=== PATIENT | female | born 2005 | race Caucasian/White ===

== ENCOUNTER 2024-05-03 06:33 | Outpatient (REF) | payer OTHER, SELFPAY ==
--- OUTSIDE RECORDS SUMMARY | 2024-05-03 06:37 | XMS_ITS | Encounter Summary ---
Author Organization [facility] Address [address] [place] [id number] Phone Care Team Providers Care Unit Aide Name Role Phone Ericka Hernandez MD Primary Care Provider [phone] Encounter Details Date Type Department Care Team (Late st Contact Info) Description 04/07/2022 Conversion Encounter [facility] [address] [place] [address] [address] [place] [address] Ericka Hernandez MD [address] [place] [address] [address] [place] [address] Social History Tobacco Use Types Packs/Day Years Used Date Smoking Tobacco: Never Assessed Comments Unknown Sex and Gender Information Value Date Recorded Sex Assigned at Not on file Legal Sex Female 3:45 PM EST Gender Identity Female 04/30/2024 4:05 PM EST Sexual Orientation Don't know 10/27/2022 1: 07 PM EDT documented as of this encounter Plan of Treatment Not on file documented as of this encounter Visit Diagnoses Not on filedocumented in this encounter Care Teams Unit Aide Relationship Specialty Start Date End Date Ericka Hernandez MD [address] [place] [address] [address] [place] [address] PCP - General 03/12/22 documented as of this encounter
--- OUTSIDE RECORDS SUMMARY | 2024-05-03 06:37 | XMS_ITS | Encounter Summary ---
Author Organization [facility] Address [address] [place] [phone] Phone Care Team Providers Care Arc Furnace Operator Name Role Phone Ericka Hernandez MD Primary Care Provider [phone] Reason for Visit * Reason Onset Date Comments Med Refill 04/03/2024 Encounter Details Date Type Department Care Team (Late st Contact Info) Description 04/03/2024 Refill [facility] [address] [place] [address] [address] [place] [address] Ericka Hernandez MD [address] [place] [address] [address] [place] [address] Food allergy (Primary Dx); Attention-deficit hyperactivity disorder, predominantly inattentive type Social History Tobacco Use Types Packs/Day Years Used Date Smoking Tobacco: Never Smokeless Tobacco: Never Alcohol Use Standard Drinks/Week Comments Never 0 (1 standard drink = 0.6 oz pur e alcohol) Hunger/Food Answer Date Recorded In the last 12 months, did y ou or your family ever eat less than you felt you should because there wasn't enough money for food? No 08/30/2023 Stable Housing Answer Date Recorded Are you worried that in the next 2 months you may not have stable housing? No 08/30/2023 Transportation Concerns Answer Date Rec orded In the last 12 months, have you or your family ever had to go without healthcare because you didn't have a way to get there? No 08/30/2023 Hazards in Home Answer Date Recorded Think about the place you li ve. Do you have problems with any of the following? Pests (mice or roaches), mold, no/not working smoke detectors, water leaks, no window guards. No 2023 Financing Utilities Answer Date Recorde d In the last 12 months, has t he electric, gas, oil, or water company threatened to shut off your services in your home? No 08/30/2023 Safety at Home Answer Date Recorded Are you or your family worried about feeling saf e in your home? No 08/30/2023 Outside Support Answer Date Recorded Do you feel that you need mo re support from other people or programs to help you care for yourself or your family? No 08/30/2023 Understanding Health Concerns Answer Da te Recorded Do you need help understandi ng your or your child's healthcare needs (diagnosis, medications, plan, etc.)? No 08/30/2023 Financing Health Concerns Answer Date R ecorded In the last 12 months, was t here a time when your child needed to see a doctor or get medications or supplies but could not because of cost? No 08/30/2023 Missing School or Work Answer Date Nick rded Did you or your child miss s chool or work because of a health problem that could have been avoided? No 08/30/2023 Child Education Answer Date Recorded Do you have concerns about y our/your child's learning or behavior in school, preschool, or daycare? 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
--- OUTSIDE RECORDS SUMMARY | 2024-05-03 06:37 | XMS_ITS | Clinical Summary ---
Author Organization [facility] Address [address] [place] [phone] Phone Care Team Providers Care Nurse Advisor Name Role Phone Ericka Hernandez MD Primary Care Provider Allergies Active Allergy Reactions Criticality Noted Date Comments Peanuts (Food) 10/13/2021 Shellfish Allergy High 10/27/2022 Tree Nuts (Food) 10/27/2022 Medications ProAir HFA 108 (90 Base) MCG/ACT inhaler SMARTSI-2 Puff(s) Via Inhaler PRN 2 Active methylphenidate 10 MG tablet Take 10 mg by mouth once daily as needed. 1 Active ondansetron 4 MG tabletIndications :Migraine with aura and without status migrainosus, not intractable Take 1 tablet (4 mg total) by mouth every 12 (twelve) hours as needed for nausea or vomiting. 20 tablet 4 Active Omalizumab (XOLAIR SC) Inject under the skin. Active EPINEPHrine 0.3 MG/0.3ML injection syringeIndication s:Food allergy Inject 0.3 mL (0.3 mg total) into the muscle Once PRN for anaphylaxis for up to 1 dose. 2 pack please 2 each 1 5 Active methylphenidate (Concerta) 36 MG CR tabletIndications :Attention-defici t hyperactivity disorder, predominantly inattentive type Take 1 tablet (36 mg total) by mouth every morning. 30 tablet 5 025 Active Active Problems Problem Noted Date Diagnosed Date Leukopenia 09/29/2023 Thrombocytopenia 09/01/2023 Eczema 05/23/2023 History of cold-induced urticaria 05/23/2023 Mild persistent asthma without complication 05/05 Assessment & Plan (08/30/2023 12:24 PM EDT): Albuterol prn Hyperlipidemia 10/28/2022 Migraine with aura 10/27/2022 Assessment & Plan (08/30/2023 12:24 PM EDT): Followed by arash Keita advil prn Assessment & Plan (10/27/2022 1:04 PM EDT): Followed by arash Keita, advil prn Ovarian cyst 10/27/2021 Assessment & Plan (08/30/2023 12:24 PM EDT): Seen by Dr Prosper Hampton, does not need repeat imaging per mo 1 cm Discussed s/s ovarian torsion, unlikely given size and dr cheng thought to resolve, no issues. Considering IUD with Dr Cheng Assessment & Plan (10/27/2022 1:05 PM EDT): Seen by Dr Prosper Hampton, does not need repeat imaging per mo 1 cm Discussed s/s ovarian torsion, unlikely given size and dr cheng thought to resolve, no issues. 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 Attention deficit disorder with hyperactivity Assessment & Plan (08/30/2023 12:25 PM EDT): On concerta 36 mg, doing well Assessment & Plan (10/27/2022 1:03 PM EDT): On concerta 36 mg, doing well Assessment & Plan (07/21/2022 11:31 AM EDT): Will decrease to 36 mg daily If concerns, consider 54 mg daily Mo and pt in agreement with plan Has short acting med prn Seasonal allergic rhinitis due to pollen 014 Overview (07/21/2022): Allergic Rhinitis Due To Pollen Assessment & Plan (08/30/2023 12:24 PM EDT): Taking xolair now Doing much better Allergy to nuts 06/18/2013 Overview (10/27/2022): Allergy To Nuts Assessment & Plan (08/30/2023 12:25 PM EDT): Challenges with [facility], chana perdue. Resolved Problems Problem Noted Date Diagnosed Date Resolved Date Attention deficit hyperactiv ity disorder (ADHD), predominantly inattentive type 10/27/2022 0 10/27/2022 Anxiety disorder 10/27/2022 10/27/2022 Overview (10/27/2022): Added by [facility] Generalized anxiety disorder 07/21/2022 10/27/2022 Overview (07/21/2022): Added by [facility] Dysmenorrhea 10/13/2021 10/27/2022 Migraine 11/16/2013 10/27/2022 Overview (07/21/2022): Added by [facility] Assessment & Plan (07/21/2022 11:30 AM EDT): Pt with longstanding history of migraines Needs note for school to have a single. Follows with Dr. Martínez, [facility] headache clinic Will use rizotryptan prn Diagnosis unknown 08/13/2013 10/27/2022 Overview (07/21/2022): Text: Cold Urticaria Reactive airway disease 06/18/201308/06 Overview (07/21/2022): Reactive Airway Disease Encounters Date Type Department Care Team Description 04/03/2024 Refill [facility] [address] [place] [address] [address] [place] [address] Ericka Hernandez MD Food allergy (Primary Dx); Attention-deficit hyperactivity disorder, predominantly inattentive type 02/06/2024 Refill [facility] [address] [place] [address] [address] [place] [address] Ericka Hernandez MD Attention-deficit hyperactivity disorder, predominantly inattentive type from Last 3 Months Immunizations Immunization Administration Dates Next Due COVID-19 Pfizer, monovalent, 12+ years 2,08/06/2020,07/16/2020 DTaP 11/11/2009, 7,05/11/2005,03/09,01/04/2005 HPV Vaccine 9 Valent 07/14/2018,01/10/2018 Hep A 11/29/2013,11/23/2012 Hep B 07/09/2005,2004,2004 HiB 05/11/2005,03/09/2005,01/04/2005 IPV 11/11/2009, 7,03/09/2005,01/04 Influenza 11/21/2020, 0,01/09/2019,01/06,01/02/2016,11/29/2013,11/23/2012 ,11/25/2011 MMR 11/11/2009,10/26/2005 Meningococcal B Bexsero 08/13/2022,01/12/2022 Meningococcal Conj (Menactra) MCV4P 01/09/2021,1 03/08/2016 Pneumococcal, Unspecified 01/05/2006,07/2005,03/09/2005,01/04 Tdap 01/02/2016 Varicella 11/11/2009,10/26/2005 Family History Relation Name Status Comments Other Free text: ADHD - mon, mat uncle Skin CA- Dad's side Anxiety - both sides of family Migraines - both sides Endometriosis - mom, significant - lead to loss of fallopian tube and ovary HTN on maternal side (mom does not have) Social History Tobacco Use Types Packs/Day Years Used Date Smoking Tobacco: Never Smokeless Tobacco: Never Tobacco Cessation:Counseling Given: Not Answered Alcohol Use Standard Drinks/Week Comments Never 0 [...] Don't know 10/27/2022 1: 07 PM EDT Last Filed Vital Signs Vital Sign Reading Time Taken Comments Blood Pressure 110/60 08/30/2023 10:23 AM EDT Pulse 76 01/12/2022 7:31 AM EST Temperature 37.1 ??C (98.8 ??F) 01/12/2021 10:[address] Respiratory Rate - - Oxygen Saturation 99% 10/15/2020 4:21 PM EDT Inhaled Oxygen Concentration - - Weight 58.1 kg (128 lb) 08/30/2023 10:23 AM EDT Height 167.6 cm (5' 6 ) 08/30/2023 10:23 AM EDT Body Mass Index 20.66 08/30/2023 10:23 AM EDT Body Mass Index Percentile 38.77% 08/30/2023 10: 23 AM EDT Growth Chart: CDC (Girls, 2- 20 Years) Plan of Treatment Health Maintenance Due Date Last Done Comments Chlamydia and Gonorrhea Screening 03/07/2024 10/27/2022 DTaP,Tdap,and Td Vaccines (7 - Td or Tdap) 01/01/2026 01/02/2016, 11/11/2009, 04/20/2006, Additional history exists HIB Vaccines Aged Out 05/11/2005, 05/2005, 01/04/2005 No longer eligible based on patient's age to complete this topic Hepatitis B Vaccines Completed 07/09/2005, 2004, 2004 Pneumococcal Vaccine Aged Out 01/05/2006, 07/09/2005, 03/09/2005, Additional history exists No longer eligible based on patient's age to complete this topic IPV Vaccines Completed 11/11/2009, 04/07, 03/09/2005, Additional history exists MMR Vaccines Completed 11/11/2009, 10/26/2005 Varicella Vaccines Completed 11/11/2009, 10/26/2005 Hepatitis A Vaccines Completed 11/29/2013, 11/24/19 13 HPV Vaccines Completed 07/14/2018, 01/10/2018 Meningococcal Vaccine Completed 01/09/2021, 017 Men B Vaccine Completed 08/13/2022, 01/12/2022 COVID-19 Vaccine Completed 12/08/2023, 04/2022, 11/15/2021, Additional history exists Influenza Vaccines Completed 12/08/2023, 1 , 12/28/2021, Additional history exists Procedures * Due to [place] [employer] law, this organization might not be sharing sensitive test results. Procedure Name Priority Date/Time Associated Diagnosis Comments CHLAMYDIA AND GONORRHEA, AMPLIFIED Routine 10/27/2022 10:33 AM EDT Well adult exam from Last 3 Months or Most Recently Relevant to Health Maintenance Results * Due to [place] [employer] law, this organization might not be sharing sensitive test results. * Chlamydia and Gonorrhoea, Amplified (10/27/2022 10:33 AM EDT) Chlamydia Trachomatis, Amplified NOT DETECTED LABDAQ PIN Neisseria Gonorrhoeae DNA NOT DETECTED LABDAQ PIN Urine (Urine) 10/27/2022 10: 33 AM EDT Ercika Hernandez MD LAB MICROBIOLOGY - GENERAL ORDERABLES Final Result LABDAQ PIN from Last 3 Months or Most Recently Relevant to Health Maintenance Insurance [facility] H[facility] Care Teams Nurse Advisor Relationship Specialty Start Date End Date Ericka Hernandez MD [address] [facility] [address] [place] [address] PCP - General 03/12/22
== END 2024-05-03 06:34 | disposition home or self-care (01) ==
LOC: HO.UMASIMG 06:33
PROVIDERS: Visit Provider Nurse Practitioner Women's Health
DX: Z13.89 Encounter for screening for other disorder (principal)